=== PATIENT | female | born 1980 | race Caucasian/White ===

== ENCOUNTER 2023-08-25 07:51 | Outpatient (OUT) | payer BC, SELFPAY ==
[2023-08-25 08:24] LABS: Basophils Absolute Auto 0.1 10^3/uL (0.0-0.1); Basophils Percent Auto 0.8 % (0.2-2.0); Eosinophils Absolute Auto 0.1 10^3/uL (0.0-0.7); Eosinophils Percent Auto 1.4 % (0.9-7.0); Hematocrit 43.3 % (36.0-48.0); Immature Granulocytes Abs Auto 0.02 10^3/uL (0.00-0.03); Immature Granulocytes Pct Auto 0.3 % (0.0-0.5); Lymphocytes Absolute Auto 2.3 10^3/uL (1.2-3.8); Lymphocytes Percent Auto 32.8 % (20.5-60.0); Mean Corpuscular HGB Conc 32.3 g/dL (29.9-35.2); Mean Corpuscular Hemoglobin 30.5 pg (26.7-34.0); Mean Corpuscular Volume 94.3 fL (81.0-99.0); Mean Platelet Volume 9.5 fL (9.5-13.5); Monocytes Absolute Auto 0.4 10^3/uL (0.3-0.8); Neutrophils Absolute Auto 4.2 10^3/uL (1.4-6.5); Neutrophils Percent Auto 58.7 % (43.0-75.0); Platelet Count 288 10^3/uL (150-450); Red Blood Count 4.59 10^6/uL (4.20-5.40); Red Cell Distribution Width 12.1 % (11.0-15.0); White Blood Count 7.1 10^3/uL (4.0-11.0)
[2023-08-25 08:31] LABS: Estimated Average Glucose 97 mg/dL
[2023-08-25 09:12] LABS: Alanine Aminotransferase 23 U/L (14-59); Albumin Globulin Ratio 0.9; Albumin Level 3.5 g/dL (3.4-5.0); Alkaline Phosphatase 53 U/L (46-116); Anion Gap 11.6; Aspartate Amino Transferase 16 U/L (15-37); BUN Creatinine Ratio 23.2; Bilirubin Total 1.2 mg/dL (0.2-1.0); Calcium 9.3 mg/dL (8.5-10.1); Carbon Dioxide 29.5 mmol/L (21.0-32.0); Chloride 104 mmol/L (98-107); Chol HDL Ratio 3.3; Cholesterol 181 mg/dL (<=200); Estimated GFR (African America >60 (>=60); Estimated GFR (Non-African Ame >60 (>=60); Free T4 1.09 ng/dL (0.76-1.46); Globulin 3.9 g/dL; Glucose 83 mg/dL (74-106); HDL Cholesterol 55 mg/dL (40-60); LDL Cholesterol Calculated 107.8 mg/dL; Potassium 4.1 mmol/L (3.5-5.1); Sodium 141 mmol/L (136-145); Thyroid Stimulating Hormone 2.278 uIU/mL (0.358-3.740); Total Protein 7.4 g/dL (6.4-8.2); Triglycerides 91 mg/dL (<=150); VLDL CHOLESTEROL 18.2 mg/dL
== END 2023-08-25 07:52 | disposition home or self-care (01) ==
PROVIDERS: PCP Family Medicine; Visit Provider Family Medicine
DX: Z00.00 Encounter for general adult medical examination without abnormal findings (principal); E78.5 Hyperlipidemia, unspecified; R73.09 Other abnormal glucose; Z12.12 Encounter for screening for malignant neoplasm of rectum; D64.9 Anemia, unspecified
CPT/HCPCS: 36415; 80053; 80061; 83036; 83540; 84436; 84439; 84443; 85025

== ENCOUNTER 2024-04-08 07:59 | Outpatient (OUT) | payer BC, SELFPAY ==
--- OUTSIDE RECORDS SUMMARY | 2024-04-08 08:21 | XMS_ITS | CCD ---
Author Organization [facility] [place] Care Team Providers Care Silver Spray Worker Name Role Phone Marta Dorado Primary Care Physician SHAYY LIU Admitting Unavailable ALEXA, SHAYY Attending Unavailable HOY ., DR RAMIREZ Primary Care Unavailable ALEXA, SHAYY Consulting Unavailable WEST, DR JOSE ALFREDO Hopkins Admitting Unavailable WEST, DR JOSE ALFREDO Hopkins Attending Unavailable HOY ., DR RAMIREZ Primary Care Unavailable WEST, DR JOSE ALFREDO Hopkins Consulting Unavailable HOY ., DR RAMIRZE Admitting Unavailable HOY ., DR RAMIREZ Attending Unavailable HOY ., DR RAMIREZ Primary Care Unavailable ALEXA, SHAYY Admitting Unavailable ALEXA, SHAYY Attending Unavailable HOY ., DR RAMIREZ Primary Care Unavailable ALEXASHAYY MO Consulting Unavailable AVE ., MARTA Ford Admitting Unavailable AVE ., MARTA Ford Attending Unavailable HOY ., DR RAMIREZ Primary Care Unavailable ZIEBER, DR SKINNY Ross Consulting Unavailable AVE ., MARTA Ford Consulting Unavailable Ave, Marta Ford Attending Unavailable Ave, Marta Ford Attending Unavailable Ave, Marta Ford Attending Unavailable Ave, Marta Ford Attending Unavailable Ave, Marta Ford Attending Unavailable Ave, Marta Ford Attending Unavailable Ave, Marta Ford Attending Unavailable Ave, Marta Ford Admitting Unavailable Allergies Allergy Classification Reported Allergen(s) Allergy Type Date of Onset Reaction(s) Facility (1 source) No Known Medication Allergies; Translations: [No Known Medication Allergies] Propensity to adverse reactions (disorder) [facility] Repository Medications Current Medications Medication Drug Class(es) Dates Sig (Normalized) Sig (Original) 0.5 ML tirzepatide 25 MG/ML Auto-Injector [Mounjaro] (1 source) Start: 12-07-2023 inject 12.5 mg by subcutaneous injection every week Mounjaro 12.5 mg/0.5 mL subcutaneous solution 12.5 mg, SubCutaneous, qWeek, # 4 EA, Refills(s) 1, Pharmacy: [facility], 163, cm, 12/07/23 9:09:00 EDT, Height/Length Dosing, 76.9, kg, 12/07/23 9:09:00 EDT, Weight Dosing Start Date: 12/07/23 Status: Ordered Adderall (2 sources) Central Nervous System Stimulant Start: 08-11-2019 take 30 mg by mouth once daily Adderall 30 mg, Oral, Daily, Refill(s) 0 Start Date: 08/11/19 Status: Ordered aspirin 81 mg oral tablet (2 sources) Platelet Aggregation Inhibitor, Nonsteroidal Anti-inflammatory Drug Start: 11-09-2022 take 1 tablet by mouth once daily Aspirin Low Dose 81 mg oral enteric coated tablet 81 mg = 1 tab(s), Oral, Daily, Refills(s) 0 Start Date: 11/09/22 Status: Ordered fluconazole 150 mg oral tablet (1 source) Azole Antifungal Start: 11-09-2022 take 1 tablet by mouth once Diflucan 150 mg Tab 150 mg = 1 tab(s), Oral, Once, # 1 tab(s), Refills(s) 0, Pharmacy: [facility]/pharmacy #[id number], 163, cm, 11/09/22 9:34:00 EDT, Height/Length Dosing, 90, kg, 11/09/22 9:34:00 EDT, Weight Dosing Start Date: 11/09/22 Status: Ordered 24 hr guanFACINE 3 mg extended release oral tablet (2 sources) Central alpha-2 Adrenergic Agonist Start: 11-09-2022 take 1 tablet by mouth once daily guanfacine 3 mg oral tablet, extended release 3 mg = 1 tab(s), Oral, Daily, Refills(s) 0 Start Date: 11/09/22 Status: Ordered Mounjaro 2.5 mg/0.5 mL subcutaneous solution (1 source) Start: 11-09-2022 inject 2.5 mg by subcutaneous injection every week Mounjaro 2.5 mg/0.5 mL subcutaneous solution 2.5 mg, SubCutaneous, qWeek, # 4 EA, Refills(s) 2, Pharmacy: [facility]/pharmacy #[id number], 163, cm, 11/09/22 9:34:00 EDT, Height/Length Dosing, 90, kg, 11/09/22 9:34:00 EDT, Weight Dosing Start Date: 11/09/22 Status: Ordered Multi Vitamin+ (2 sources) Start: 08-11-2019 Multi Vitamin+ Refill(s) 0 Start Date: 08/11/19 Status: Ordered ondansetron 4 mg oral tablet (1 source) Serotonin-3 Receptor Antagonist Start: 12-07-2023 take 1 tablet by mouth every eight hours as needed for nausea Zofran 4 mg Tab 4 mg = 1 tab(s), Oral, q8hr, PRN Nausea/Vomiting, # 12 tab(s), Refills(s) 1, Pharmacy: [facility]/pharmacy #[id number], 163, cm, 12/07/23 9:09:00 EDT, Height/Length Dosing, 76.9, kg, 12/07/23 9:09:00 EDT, Weight Dosing Start Date: 12/07/23 Status: Ordered Vitamin D3 10,000 intl units oral capsule (2 sources) Start: 11-09-2022 take 1 capsule by mouth once daily Vitamin D3 10,000 intl units oral capsule 250 mcg = 1 cap(s), Oral, Daily, Refills(s) 0 Start Date: 11/09/22 Status: Ordered Completed/Discontinued Medications Medication Drug Class(es) Dates Sig (Normalized) Sig (Original) levonorgestrel 0.228386 mg/hr intrauterine system (3 sources) Progestin, Progestin-containin g Intrauterine Device Start: 11-09-2022 Mirena 52 mg intrauteral device 52 mg = 1 EA, IntraUteral, Once, X 1 dose(s), # 1 EA, Refills(s) 0 Start Date: 11/09/22 Status: Ordered Problems Active Problems Problem Classification Problem Date Documented Da te Episodic/Chronic Genitourinary symptoms and ill-defined conditions (2 sources) Microscopic hematuria 08-01-2019 Episodic Other nutritional; endocrine; and metabolic disorders (2 sources) Body mass index 30+ - obesity 11-09-2022 Chronic Other nutritional; endocrine; and metabolic disorders (1 source) Overweight in adulthood with body mass index of 25 or more but less than 30 12-07-2023 Episodic Other screening for suspected conditions (not mental disorders or infectious disease) (4 sources) Encounter for screening mammogram for malignant neoplasm of breast; Translations: [ENC SCR MAMMO MALIG NEOPLASM BREAST] Onset: 12-04-2022 Episodic Unclassified (2 sources) Non-smoker 11-09-2022 Unclassified (2 sources) CONTACT W/AND (SUSP) EXPOS COVID-19; Translations: [CONTACT W/AND (SUSP) EXPOS COVID-19] Onset: 04-18-2022 Unclassified (1 source) Cancer cervix screening status 12-07-2023 Unclassified (3 sources) Patient encounter status 04-11-2023 Viral infection (1 source) COVID-19; Translations: [COVID-19] Onset: 04-18-2022 Past or Other Problems Problem Classification Problem Date Documented Da te Episodic/Chronic Unclassified (1 source) CONTACT W/AND (SUSP) EXPOS COVID-19; Translations: [CONTACT W/AND (SUSP) EXPOS COVID-19] Onset: 04-16-2022 Results Test Name Value Interpretation Reference Range Facility PAP 12-13-2023 Cytology report Cyto stain Doc (Cvx/Vag) Note Invalid Interpretation Code [facility] Comment on above: Result Comment: TEST S RESULT FLAG UNITS REF RANGE LAB Clinician Provided Cytology Information Source.............Endocervix No. of containers..01 ThinPrep Vial DIAGNOSIS: 01 NEGATIVE FOR INTRAEPITHELIAL LESION OR MALIGNANCY. Specimen adequacy: 01 Satisfactory for evaluation. No endocervical component is identified. Performed by: 01 Brigid Gama Body Maker Machine Setter (ASCP) . 01 Note: Note 01 The Pap smear is a screening test designed to aid in the detection of premalignant and malignant conditions of the uterine cervix. It is not a diagnostic procedure and should not be used as the sole means of detecting cervical cancer. Both false-positive and false-negative reports do occur. Test Methodology: Note 01 This liquid based ThinPrep(R) pap test was screened with the use of an image guided system. HPV Genotype Reflex Note 01 Criteria not met, HPV Genotype not performed. FLAG LEGEND: L-Low Normal,H-High Normal,LL-Alert Low,HH-Alert High <-Panic Low,>-Panic High,A-Abnormal,AA-Critical Abnormal Performed at: [address] [address] Nessa Graham MD, Performed By: #### 1 [id number] #### [facility] [address] [place] [address] HPV 16+18+31+33+35+39+ 45+51+52+56+58+59+ 66+68 DNA Probe+sig amp Ql (Cvx) Negative Invalid Interpretation Code Negative [facility] Comment on above: Result Comment: This nucleic acid amplification test detects fourteen high-risk HPV types (16,18,31,33,35,39,45,51,52,56,58,59,66,68) without differentiation. Performed at: [address] [id number] MD Gladys Szymanski Performed at: =[address] [id number] MD Gladys Szymanski Performed By: #### 1 [id number] #### [facility] [address] [place] [address] Ambulatory Visit Summaryon 0 12-07-2023 Ambulatory Visit Summary ELENA METZGER :1980 Visit Date:12/07/2023 Ambulatory Visit Instructions Your Diagnosis Well woman exam Breast cancer screening by mammogram Cervical cancer screening Adult BMI 29.0-29.9 kg/sq m BMI 28.0-28.9,adult Tests Performed MA Mamm Screen w/CAD if perf and 3D Selvin -- Results Pending -- Please visit your patient portal for your results or contact your primary care physician. Your Care Team Attending Physician - Marta Kent Primary Care Physician - Marta Kent This Is Your Medications List amphetamine-dextroamp hetamine (Adderall) aspirin (Aspirin Low Dose 81 mg oral enteric coated tablet) cholecalciferol (Vitamin D3 10,000 intl units oral capsule) guanfacine (guanfacine 3 mg oral tablet, extended release) levonorgestrel (Mirena 52 mg intrauteral device) multivitamin (Multi Vitamin+) ondansetron (Zofran 4 mg Tab) tirzepatide (Mounjaro 12.5 mg/0.5 mL subcutaneous solution) Procedures Performed Caesarean section, Colonoscopy, Tonsillectomy, Tubal ligation. Discharge Vitals Heart Rate (Peripheral) 86 Blood Pressure 120/64 Height 163.0 cm Height 64 in Weight 76.9 kg Weight 169.18 lb BMI 28.94 What to do next Scheduled Follow-Up Appointments Sunday 8:20 AM EDT With: Marta Kent Where: [facility] Invalid Interpretation Code [address] [place] [address]- \.br\ You Need to Complete the Following\.br\ PAP [id number] w/ HPV and Genotype rflx, Cervical, Routine collect, 12/07/23, Order for future visit, Nurse collect, Well woman exam [facility] Office/Clini c Noteon 12-07-2023 Family Medicine Office/Clinic Note Chief Complaint well woman check HPI Staff Elena is a 43 year old female presenting for well woman check last pap 2022-normal mammogram november 2022 no risk for std and has never had one in the past. has a mirena History of Present Illness pt presents today for well woman exam Review of Systems PHQ Score Initial Depression Screen Score: 0 SCORE Physical Exam Vitals & Measurements HR: 86(Peripheral) BP: 120/64 SpO2: 98% HT: 64 in HT: 163.0 cm WT: 76.9 kg WT: 169.18 lb BMI: 28.94 General: Well developed, well nourished, in no acute distress Neck: Neck supple. No masses or palpable cervical nodes. Trachea midline. Thyroid without nodules, masses, tenderness, or enlargement Breast: No mass, nodule, discharge, or erythema bilaterally, and no axillary lymphadenopathy Lungs: Normal respiratory effort and clear to auscultation Cardio: Regular rate and rhythm, normal S1 and S2, no murmur, no rub Abdomen: Soft, non-distended, non-tender, normal bowel sounds x4 Gyno: normal external genitalia. Urethra no discharge. Vagina normal without lesions, no vaginal discharge. Cervix normal, without lesions. Uterus normal. No adnexal masses. Pap obtained Neurologic: Grossly normal Skin: [place], moist, no tenting Lymph Nodes: No cervical adenopathy, nodes normal Mental Status: Alert and oriented x3. Normal mood and affect Assessment/Plan 1. Well woman exam (Z01.419: Encounter for gynecological examination (general) (routine) without abnormal findings) pt presents today for well woman exam. BSE discussed. SELVIN breast exam WNL. pap obtained without difficulty. pt is doing well denies needs at this time. RTC 3 months for weight managment Ordered: ondansetron, 4 mg = 1 tab(s), Oral, q8hr, PRN Nausea/Vomiting, # 12 tab(s), Refills(s) 1, Pharmacy: [id number], 163, cm, 12/07/23 9:09:00 EDT, Height/Length Dosing, 76.9, kg, 12/07/23 9:09:00 EDT, Weight Dosing MA Mamm Screen w/CAD if perf and 3D Selvin PAP w/ HPV and Genotype rflx 2. Breast cancer screening by mammogram (Z12.31: Encounter for screening mammogram for malignant neoplasm of breast) mammogram scheduled for next week at [facility] Ordered: ondansetron, 4 mg = 1 tab(s), Oral, q8hr, PRN Nausea/Vomiting, # 12 tab(s), Refills(s) 1, Pharmacy: [id number], 163, cm, 12/07/23 9:09:00 EDT, Height/Length Dosing, 76.9, kg, 12/07/23 9:09:00 EDT, Weight Dosing MA Mamm Screen w/CAD if perf and 3D Selvin PAP w/ HPV and Genotype rflx 3. Cervical cancer screening (Z12.4: Encounter for screening for malignant neoplasm of cervix) pap obtained Ordered: ondansetron, 4 mg = 1 tab(s), Oral, q8hr, PRN Nausea/Vomiting, # 12 tab(s), Refills(s) 1, [id number], 163, cm, 12/07/23 9:09:00 EDT, Height/Length Dosing, 76.9, kg, 12/07/23 9:09:00 EDT, Weight Dosing PAP w/ HPV and Genotype rflx 4. Adult BMI 29.0-29.9 kg/sq m (Z68.29: Body mass index [BMI] 29.0-29.9, adult) pt has been taking mounjaro is at a stand still for weight loss. will increase dose 5. BMI 28.0-28.9,adult (Z68.28: Body mass index [BMI] 28.0-28.9, adult) BMI education compelte Ordered: ondansetron, 4 mg = 1 tab(s), Oral, q8hr, PRN Nausea/Vomiting, # 12 tab(s), Refills(s) 1, [id number], 163, cm, 12/07/23 9:09:00 EDT, Height/Length Dosing, 76.9, kg, 12/07/23 9:09:00 EDT, Weight Dosing PAP w/ HPV and Genotype rflx Orders: tirzepatide, 12.5 mg, SubCutaneous, qWeek, # 4 EA, Refills(s) 1, Pharmacy: [facility], 163, cm, 12/07/23 9:09:00 EDT, Height/Length Dosing, 76.9, kg, 12/07/23 9:09:00 EDT, Weight Dosing tirzepatide, 10 mg, SubCutaneous, qWeek, # 12 EA, Refills(s) 0, Pharmacy: [facility], 163, cm, 09/05/23 16:47:00 EST, Height/Length Dosing, 79.5, kg, 09/05/23 16:47:00 EST, Weight Dosing Follow-up No qualifying data available Problem List/Past Medical History Ongoing Adult BMI 29.0-29.9 kg/sq m Asymptomatic microscopic hematuria BMI 33.0-33.9,adult Breast cancer screening by mammogram Cervical cancer screening Encounter for weight management Non-smoker Well woman exam Historical No qualifying data Procedure/Surgical History Caesarean section, Colonoscopy, Tonsillectomy, Tubal ligation. Medications Adderall, 30 mg, Oral, Daily Aspirin Low Dose 81 mg oral enteric coated tablet, 81 mg= 1 tab(s), Oral, Daily guanfacine 3 mg oral tablet, extended release, 3 mg= 1 tab(s), Oral, Daily Mirena 52 mg intrauteral device, 52 mg= 1 EA, IntraUteral, Once Mounjaro 12.5 mg/0.5 mL subcutaneous solution, 12.5 mg, SubCutaneous, qWeek, 1 refills Multi Vitamin+ Vitamin D3 10,000 intl units oral capsule, 250 mcg= 1 cap(s), Oral, Daily Zofran 4 mg Tab, 4 mg= 1 tab(s), Oral, q8hr, PRN, 1 refills Allergies No Known Allergies Social History Alcohol Current, 1-2 times per month, 08/11/2019 Tobacco Never (less than 100 in lifetime) Tobacco Use:. Never Smokeless Tobacco Use:. Household tobacco (more content not included)... Normal [facility] Comment on above: Result Comment: Elec tronically Signed By: Marta Kent\.br\Date and Time Signed: 12/07/23 09:39 EDT PAP [id number] 12-07-2023 Gynecological Body Site ENDOCERVIX Normal [facility] Comment on above: Performed By: #### 1 [id number] #### [facility] [address] [place] [address] Ambulatory Visit Summaryon 0 09-05-2023 Ambulatory Visit Summary ELENA METZGER :1980 Visit Date:09/05/2023 Ambulatory Visit Instructions Your Diagnosis Encounter for weight management Non-smoker BMI 29.0-29.9,adult Class 1 obesity due to excess calories in adult Your Care Team Attending Physician - Marta Kent Primary Care Physician - Marta Kent This Is Your Medications List amphetamine-dextroamp hetamine (Adderall) aspirin (Aspirin Low Dose 81 mg oral enteric coated tablet) cholecalciferol (Vitamin D3 10,000 intl units oral capsule) guanfacine (guanfacine 3 mg oral tablet, extended release) levonorgestrel (Mirena 52 mg intrauteral device) multivitamin (Multi Vitamin+) tirzepatide (Mounjaro 10 mg/0.5 mL subcutaneous solution) Procedures Performed Caesarean section, Colonoscopy, Tonsillectomy, Tubal ligation. Discharge Vitals Heart Rate (Peripheral) 68 Respiratory Rate 18 Blood Pressure 130/82 Height 163.0 cm Height 64 in Weight 79.5 kg Weight 174.9 lb BMI 29.92 What to do next Scheduled Follow-Up Appointments Sunday 4:40 PM EDT With: Marta Kent Where: [facility] [place] Normal [facility] Family Medicine Office/Clini c Noteon 09-05-2023 Family Medicine Office/Clinic Note HPI Staff Elena is a 43 year old female presenting for 3 month follow up Weight management: started on Mounjaro 07/26/23 , was previously on Ozempic and wasn't happy with results Sleeping well:Yes, 6-8 hours Chest pain:No Tremors:No Headaches:No Heart fluttering:No Blurred Vision:No Beginning weight: 182.16Ibs/82.80kg Previous weight: 180.6Ibs/82.1Kg Today's weight: 174.9Ibs/ 79.5kg Questions/Concerns: no concerns History of Present Illness pt presents today for weight management. was started on mounjaro in June Review of Systems PHQ Score Initial Depression Screen Score: 0 SCORE ROS - Provider Constitutional: no fever, no chills, no sweats, no fatigue Respiratory: no shortness of breath, no cough, no orthopnea, no wheezing. Cardiovascular: no chest pain, no palpitations, no edema. Neurologic: no headache, no dizziness, no numbness, no weakness. Physical Exam Vitals & Measurements HR: 68(Peripheral) RR: 18 BP: 130/82 SpO2: 99% HT: 64 in HT: 163.0 cm WT: 79.5 kg WT: 174.9 lb BMI: 29.92 General: alert, no acute distress ENMT: oral mucosa moist, no pharyngeal erythema or exudate Cardiovascular: regular rate and rhythm, normal peripheral perfusion Respiratory: Lungs CTA, respirations non labored Extremities: no deformity, no trauma Neurological: oriented x 4, LOC appropriate for age, CN II-XII intact, motor strength equal & normal bilaterally, speech normal Assessment/Plan 1. Encounter for weight management (Z76.89: Persons encountering health services in other specified circumstances) pt presents today for weight management. is down 6 pounds. is doing well. will send 3 month refill. all questions answered. RTC 3 months 2. Non-smoker (Z78.9: Other specified health status) continue not smoking Ordered: tirzepatide, 10 mg, SubCutaneous, qWeek, # 12 EA, Refills(s) 0, Pharmacy: [facility], 163, cm, 09/05/23 16:47:00 EST, Height/Length Dosing, 79.5, kg, 09/05/23 16:47:00 EST, Weight Dosing tirzepatide, 10 mg, SubCutaneous, qWeek, # 12 EA, Refills(s) 0, Pharmacy: [facility], 163, cm, 07/04/23 17:29:00 EST, Height/Length Dosing, 82.1, kg, 07/04/23 17:29:00 EST, Weight Dosing 3. BMI 29.0-29.9,adult (Z68.29: Body mass index [BMI] 29.0-29.9, adult) BMI education complete Class 1 obesity due to excess calories in adult (E66.09: Other obesity due to excess calories) see above Ordered: tirzepatide, 10 mg, SubCutaneous, qWeek, # 12 EA, Refills(s) 0, Pharmacy: [facility], 163, cm, 09/05/23 16:47:00 EST, Height/Length Dosing, 79.5, kg, 09/05/23 16:47:00 EST, Weight Dosing tirzepatide, 10 mg, SubCutaneous, qWeek, # 12 EA, Refills(s) 0, Pharmacy: [facility], 163, cm, 07/04/23 17:29:00 EST, Height/Length Dosing, 82.1, kg, 07/04/23 17:29:00 EST, Weight Dosing Orders: semaglutide, 0.25 mg, SubCutaneous, qWeek, 0.25mg-weekly x4 weeks 0.50mg-weekly x4 weeks 1mg-weekly x 4weeks, # 1 EA, Refills(s) 2, Pharmacy: [facility], 163, cm, 04/11/23 17:03:00 EDT, Height/Length Dosing, 82.8, kg, 04/11/23 17:03:00 EDT, We... semaglutide, 1 mg, SubCutaneous, qWeek, 4 EA, Refill(s) 1, start after 0.5 mg completed, [facility], 163, cm, 04/11/23 17:03:00 EDT, Height/Length Dosing, 82.8, kg, 04/11/23 17:03:00 EDT, Weight Dosing tirzepatide, 2.5 mg, SubCutaneous, qWeek, # 4 EA, Refills(s) 2, Pharmacy: [facility] #[id number], 163, cm, 11/09/22 9:34:00 EDT, Height/Length Dosing, 90, kg, 11/09/22 9:34:00 EDT, Weight Dosing Follow-up No qualifying data available Problem List/Past Medical History Ongoing Asymptomatic microscopic hematuria BMI 33.0-33.9,adult Encounter for weight management Non-smoker Historical No qualifying data Procedure/Surgical History Caesarean section, Colonoscopy, Tonsillectomy, Tubal ligation. Medications Adderall, 30 mg, Oral, Daily Aspirin Low Dose 81 mg oral enteric coated tablet, 81 mg= 1 tab(s), Oral, Daily guanfacine 3 mg oral tablet, extended release, 3 mg= 1 tab(s), Oral, Daily Mirena 52 mg intrauteral device, 52 mg= 1 EA, IntraUteral, Once Mounjaro 10 mg/0.5 mL subcutaneous solution, 10 mg, SubCutaneous, qWeek Multi Vitamin+ Vitamin D3 10,000 intl units oral capsule, 250 mcg= 1 cap(s), Oral, Daily Allergies No Known Allergies Social History Alcohol Current, 1-2 times per month, 08/11/2019 Tobacco Never (less than 100 in lifetime) Tobacco Use:. Never Smokeless Tobacco Use:. Household tobacco concerns: No., 09/05/2023 Family History Family history is negative Immunizations Vaccine Date Status SARS-CoV-2 (COVID-19) mRNA-1273 vaccine 09/30/2020 Recorded SARS-CoV-2 (COVID-19) mRNA-1273 vaccine 09/02/2020 Recorded influenza, unspecified formulation 06/04/2020 Recorded influenza, unspecified formulation 06/05/2017 Recorded Normal [facility] Comment on above: Result Comment: Elec tronically Signed By: Marta Kent\.br\Date and Time Signed: 09/05/23 17:07 EST Family Medicine Office/Clini c Noteon 07-26-2023 Family Medicine Office/Clinic Note HPI Staff Elena is a 43 year old female presenting for 3 month follow up Weight management: Started semaglutide on 04/11/23 Sleeping well:Yes, 6-8 hours Chest pain:No Tremors:No Headaches:No Heart fluttering:No Blurred Vision:No Beginning weight: 182.16Ibs/82.80kg Previous weight: Today's weight: 82.1kg/180.6lbs Questions/Concerns: doesn't feel the shot is doing much for her in terms of weight loss, took it a year ago and did great with it, not happy with it can't do adipex due to she takes adderall would mounjaro be an option History of Present Illness pt presents today for weight management. down 2 pounds. pt is not getting the results she expected Review of Systems ROS - Provider Constitutional: no fever, no chills, no sweats, no fatigue Respiratory: no shortness of breath, no cough, no orthopnea, no wheezing. Cardiovascular: no chest pain, no palpitations, no edema. Neurologic: no headache, no dizziness, no numbness, no weakness. Physical Exam Vitals & Measurements T: 37.0 ?C(Temporal Artery) HR: 78(Peripheral) RR: 14 BP: 120/78 SpO2: 100% HT: 64 in HT: 163 cm WT: 82.1 kg WT: 180.62 lb BMI: 30.9 General: alert, no acute distress ENMT: oral mucosa moist, no pharyngeal erythema or exudate Cardiovascular: regular rate and rhythm, normal peripheral perfusion Respiratory: Lungs CTA, respirations non labored Extremities: no deformity, no trauma Neurological: oriented x 4, LOC appropriate for age, CN II-XII intact, motor strength equal & normal bilaterally, speech normal Assessment/Plan 1. Encounter for weight management (Z76.89: Persons encountering health services in other specified circumstances) pt is not getting results like she did the last time she was on ozempic. medication changed to mounjaro. pt to return in 3 months. all questions answered. 2. BMI 30.0-30.9,adult (Z68.30: Body mass index [BMI] 30.0-30.9, adult) bmi education complete 3. Class 1 obesity due to excess calories in adult (E66.09: Other obesity due to excess calories) see above 4. Nonsmoker (Z78.9: Other specified health status) continue not smoking Follow-up No qualifying data available Problem List/Past Medical History Ongoing Asymptomatic microscopic hematuria BMI 33.0-33.9,adult Encounter for weight management Non-smoker Historical No qualifying data Procedure/Surgical History Caesarean section, Colonoscopy, Tonsillectomy, Tubal ligation. Medications Adderall, 30 mg, Oral, Daily Aspirin Low Dose 81 mg oral enteric coated tablet, 81 mg= 1 tab(s), Oral, Daily guanfacine 3 mg oral tablet, extended release, 3 mg= 1 tab(s), Oral, Daily Mirena 52 mg intrauteral device, 52 mg= 1 EA, IntraUteral, Once Mirena 52 mg intrauteral device, 52 mg= 1 EA, IntraUteral, Once Mounjaro 10 mg/0.5 mL subcutaneous solution, 10 mg, SubCutaneous, qWeek Mounjaro 2.5 mg/0.5 mL subcutaneous solution, 2.5 mg, SubCutaneous, qWeek, 2 refills, Not taking Multi Vitamin+, Not taking Ozempic 2 mg/1.5 mL (1 mg dose) subcutaneous solution, 1 mg, SubCutaneous, qWeek, 1 refills Ozempic 2 mg/3 mL (0.25 mg or 0.5 mg dose) subcutaneous solution, 0.25 mg, SubCutaneous, qWeek, 2 refills Vitamin D3 10,000 intl units oral capsule, 250 mcg= 1 cap(s), Oral, Daily Allergies No Known Allergies Social History Alcohol Current, 1-2 times per month, 08/11/2019 Tobacco Never (less than 100 in lifetime) Tobacco Use:. Never Smokeless Tobacco Use:. Household tobacco concerns: No., 07/04/2023 Family History Family history is negative Immunizations Vaccine Date Status SARS-CoV-2 (COVID-19) mRNA-1273 vaccine 09/30/2020 Recorded SARS-CoV-2 (COVID-19) mRNA-1273 vaccine 09/02/2020 Recorded influenza, unspecified formulation 06/04/2020 Recorded influenza, unspecified formulation 06/05/2017 Recorded Normal [facility] Comment on above: Result Comment: Elec tronically Signed By: Ave GAUTHIER, Marta Ford\.br\Date and Time Signed: 07/26/23 14:11 EST Family Medicine Office/Clini c Noteon 07-24-2023 Family Medicine Office/Clinic Note HPI Staff Elena is a 43 year old female presenting for 3 month follow up Weight management: Started semaglutide on 04/11/23 Sleeping well:Yes, 6-8 hours Chest pain:No Tremors:No Headaches:No Heart fluttering:No Blurred Vision:No Beginning weight: 182.16Ibs/82.80kg Previous weight: Today's weight: 82.1kg/180.6lbs Questions/Concerns: doesn't feel the shot is doing much for her in terms of weight loss, took it a year ago and did great with it, not happy with it can't do adipex due to she takes adderall would mounjaro be an option History of Present Illness pt presents today for weight management. was started on ozempic 3 months ago Review of Systems ROS - Provider Constitutional: no fever, no chills, no sweats, no fatigue Respiratory: no shortness of breath, no cough, no orthopnea, no wheezing. Cardiovascular: no chest pain, no palpitations, no edema. Neurologic: no headache, no dizziness, no numbness, no weakness. Physical Exam Vitals & Measurements T: 37.0 ?C(Temporal Artery) HR: 78(Peripheral) RR: 14 BP: 120/78 SpO2: 100% HT: 64 in HT: 163 cm WT: 82.1 kg WT: 180.62 lb BMI: 30.9 General: alert, no acute distress ENMT: oral mucosa moist, no pharyngeal erythema or exudate Cardiovascular: regular rate and rhythm, normal peripheral perfusion Respiratory: Lungs CTA, respirations non labored Extremities: no deformity, no trauma Neurological: oriented x 4, LOC appropriate for age, CN II-XII intact, motor strength equal & normal bilaterally, speech normal Assessment/Plan 1. Encounter for weight management (Z76.89: Persons encountering health services in other specified circumstances) pt is not doing as well with weight loss on the ozempic this time. would like to try mounjaro. will send to [facility]. all questions answered. RTC 3 months 2. BMI 30.0-30.9,adult (Z68.30: Body mass index [BMI] 30.0-30.9, adult) bmi education complete 3. Class 1 obesity due to excess calories in adult (E66.09: Other obesity due to excess calories) see above 4. Nonsmoker (Z78.9: Other specified health status) continue not smoking Follow-up No qualifying data available Problem List/Past Medical History Ongoing Asymptomatic microscopic hematuria BMI 33.0-33.9,adult Encounter for weight management Non-smoker Historical No qualifying data Procedure/Surgical History Caesarean section, Colonoscopy, Tonsillectomy, Tubal ligation. Medications Adderall, 30 mg, Oral, Daily Aspirin Low Dose 81 mg oral enteric coated tablet, 81 mg= 1 tab(s), Oral, Daily guanfacine 3 mg oral tablet, extended release, 3 mg= 1 tab(s), Oral, Daily Mirena 52 mg intrauteral device, 52 mg= 1 EA, IntraUteral, Once Mirena 52 mg intrauteral device, 52 mg= 1 EA, IntraUteral, Once Mounjaro 10 mg/0.5 mL subcutaneous solution, 10 mg, SubCutaneous, qWeek Mounjaro 2.5 mg/0.5 mL subcutaneous solution, 2.5 mg, SubCutaneous, qWeek, 2 refills, Not taking Multi Vitamin+, Not taking Ozempic 2 mg/1.5 mL (1 mg dose) subcutaneous solution, 1 mg, SubCutaneous, qWeek, 1 refills Ozempic 2 mg/3 mL (0.25 mg or 0.5 mg dose) subcutaneous solution, 0.25 mg, SubCutaneous, qWeek, 2 refills Vitamin D3 10,000 intl units oral capsule, 250 mcg= 1 cap(s), Oral, Daily Allergies No Known Allergies Social History Alcohol Current, 1-2 times per month, 08/11/2019 Tobacco Never (less than 100 in lifetime) Tobacco Use:. Never Smokeless Tobacco Use:. Household tobacco concerns: No., 07/04/2023 Family History Family history is negative Immunizations Vaccine Date Status SARS-CoV-2 (COVID-19) mRNA-1273 vaccine 09/30/2020 Recorded SARS-CoV-2 (COVID-19) mRNA-1273 vaccine 09/02/2020 Recorded influenza, unspecified formulation 06/04/2020 Recorded influenza, unspecified formulation 06/05/2017 Recorded Normal [facility] Comment on above: Result Comment: Elec tronically Signed By: Marta Kent\.br\Date and Time Signed: 07/24/23 15:52 EST Retail - Clinical Noteon Retail - Clinical Note [id number]. [id number] Normal [facility] Ambulatory Visit Summaryon 1 09-03-2022 Ambulatory Visit Summary ELENA METZGER :1980 Visit Date:07/04/2023 Ambulatory Visit Instructions Your Diagnosis BMI 30.0-30.9,adult Class 1 obesity due to excess calories in adult Nonsmoker Your Care Team Attending Physician - Marta Kent Primary Care Physician - Marta Kent This Is Your Medications List amphetamine-dextroamp hetamine (Adderall) aspirin (Aspirin Low Dose 81 mg oral enteric coated tablet) cholecalciferol (Vitamin D3 10,000 intl units oral capsule) guanfacine (guanfacine 3 mg oral tablet, extended release) levonorgestrel (Mirena 52 mg intrauteral device) levonorgestrel (Mirena 52 mg intrauteral device) multivitamin (Multi Vitamin+) semaglutide (Ozempic 2 mg/1.5 mL (1 mg dose) subcutaneous solution) semaglutide (Ozempic 2 mg/3 mL (0.25 mg or 0.5 mg dose) subcutaneous solution) tirzepatide (Mounjaro 10 mg/0.5 mL subcutaneous solution) tirzepatide (Mounjaro 2.5 mg/0.5 mL subcutaneous solution) Procedures Performed Caesarean section, Colonoscopy, Tonsillectomy, Tubal ligation. Discharge Vitals Temperature (Temporal Artery) 37.0 ?C Heart Rate (Peripheral) 78 Respiratory Rate 14 Blood Pressure 120/78 Height 163 cm Height 64 in Weight 82.1 kg Weight 180.62 lb BMI 30.9 What to do next Scheduled Follow-Up Appointments Sunday 4:40 PM EST With: Marta Kent Where: [facility] Ambulatory Visit Summaryon 0 04-11-2023 Ambulatory Visit Summary ELENA METZGER :1980 Visit Date:04/11/2023 Ambulatory Visit Instructions Your Diagnosis BMI 31.0-31.9,adult Your Care Team Attending Physician - Marta Kent Primary Care Physician - Marta Kent This Is Your Medications List amphetamine-dextroamp hetamine (Adderall) aspirin (Aspirin Low Dose 81 mg oral enteric coated tablet) cholecalciferol (Vitamin D3 10,000 intl units oral capsule) fluconazole (Diflucan 150 mg Tab) guanfacine (guanfacine 3 mg oral tablet, extended release) levonorgestrel (Mirena 52 mg intrauteral device) levonorgestrel (Mirena 52 mg intrauteral device) multivitamin (Multi Vitamin+) tirzepatide (Mounjaro 2.5 mg/0.5 mL subcutaneous solution) Procedures Performed Caesarean section, Colonoscopy, Tonsillectomy, Tubal ligation. Discharge Vitals Heart Rate (Peripheral) 78 Respiratory Rate 18 Blood Pressure 128/82 Height 163 cm Height 64 in Weight 82.80 kg Weight 182.16 lb BMI 31.16 What to do next Scheduled Follow-Up Appointments Sunday 4:40 PM EDT With: Marta Kent Where: [facility] Family Medicine Office/Clini c Noteon 04-11-2023 Family Medicine Office/Clinic Note HPI Staff Elena is a 43 year old female presenting for weight management Weight management Today's Weight: Sleeping well:Yes, 6-8 hours Chest pain:No Tremors:No Headaches:No Heart fluttering:No Blurred Vision:No Questions Concerns: pt has taken ozempic for a few months last year and had to stop due to insurance not covering it. Pt would like to try ozempic again History of Present Illness pt presents today to discuss ozempic rx Review of Systems PHQ Score Initial Depression Screen Score: 0 ROS - Provider Constitutional: no fever, no chills, no sweats, no fatigue Respiratory: no shortness of breath, no cough, no orthopnea, no wheezing. Cardiovascular: no chest pain, no palpitations, no edema. Neurologic: no headache, no dizziness, no numbness, no weakness. Physical Exam Vitals & Measurements HR: 78(Peripheral) RR: 18 BP: 128/82 SpO2: 96% HT: 64 in HT: 163 cm WT: 82.80 kg WT: 182.16 lb BMI: 31.16 General: alert, no acute distress ENMT: oral mucosa moist, no pharyngeal erythema or exudate Cardiovascular: regular rate and rhythm, normal peripheral perfusion Respiratory: Lungs CTA, respirations non labored Extremities: no deformity, no trauma Neurological: oriented x 4, LOC appropriate for age, CN II-XII intact, motor strength equal & normal bilaterally, speech normal Assessment/Plan 1. Abnormal weight gain (R63.5: Abnormal weight gain) pt would like to discuss ozempic. she took it last year and did well on it. but then insurance wouldn't cover it. she has a new insurance. will send rx to [facility]. pt will notify provider if it is not covered. all questions answered. RTC 3 months 2. Encounter for weight management (Z76.89: Persons encountering health services in other specified circumstances) see above 3. Insulin resistance (E88.81: Metabolic syndrome) see above 4. BMI 31.0-31.9,adult (Z68.31: Body mass index [BMI] 31.0-31.9, adult) BMI education complete Ordered: semaglutide, 0.25 mg, SubCutaneous, qWeek, 0.25mg-weekly x4 weeks 0.50mg-weekly x4 weeks 1mg-weekly x 4weeks, # 1 EA, Refills(s) 2, Pharmacy: [facility], 163, cm, 04/11/23 17:03:00 EDT, Height/Length Dosing, 82.8, kg, 04/11/23 17:03:00 EDT, We... Follow-up No qualifying data available Problem List/Past Medical History Ongoing Asymptomatic microscopic hematuria BMI 33.0-33.9,adult Encounter for weight management Non-smoker Historical No qualifying data Procedure/Surgical History Caesarean section, Colonoscopy, Tonsillectomy, Tubal ligation. Medications Adderall, 30 mg, Oral, Daily Aspirin Low Dose 81 mg oral enteric coated tablet, 81 mg= 1 tab(s), Oral, Daily Diflucan 150 mg Tab, 150 mg= 1 tab(s), Oral, Once guanfacine 3 mg oral tablet, extended release, 3 mg= 1 tab(s), Oral, Daily Mirena 52 mg intrauteral device, 52 mg= 1 EA, IntraUteral, Once Mirena 52 mg intrauteral device, 52 mg= 1 EA, IntraUteral, Once Mounjaro 2.5 mg/0.5 mL subcutaneous solution, 2.5 mg, SubCutaneous, qWeek, 2 refills Multi Vitamin+ Ozempic 2 mg/3 mL (0.25 mg or 0.5 mg dose) subcutaneous solution, 0.25 mg, SubCutaneous, qWeek, 2 refills Vitamin D3 10,000 intl units oral capsule, 250 mcg= 1 cap(s), Oral, Daily Allergies No Known Allergies Social History Alcohol Current, 1-2 times per month, 08/11/2019 Tobacco Never (less than 100 in lifetime) Tobacco Use:. Never Smokeless Tobacco Use:. Household tobacco concerns: No., 04/11/2023 Family History Family history is negative Immunizations Vaccine Date Status SARS-CoV-2 (COVID-19) mRNA-1273 vaccine 09/30/2020 Recorded SARS-CoV-2 (COVID-19) mRNA-1273 vaccine 09/02/2020 Recorded influenza, unspecified formulation 06/04/2020 Recorded influenza, unspecified formulation 06/05/2017 Recorded Normal [facility] Comment on above: Result Comment: Elec tronically Signed By: Ave GAUTHIER, Marta Ford\.br\Date and Time Signed: 04/11/23 18:07 EDT MG MAMM SCREEN 3D SELVIN CADon 12-04-2022 MG MAMM SCREEN 3D SELVIN CAD Patient: ELENA METZGER Exam Date: 12/04/2022 : 1980 Gender:F Ordering : MARTA DORADO . Admission #: [id number] Family : Order #: [id number] CLICK HERE TO VIEW EXAM RADIOLOGY REPORT PROCEDURE: MAMMOGRAM SCREENING 3D BILATERAL CAD COMPARISON: MG MAMM SCREEN 3D SELVIN CAD, 09/28/2021. MG MAMM LT DIAG W CAD, 08/19/2020. MG MAMM SCREEN SELVIN W CAD, 10/27/2016. INDICATIONS: Screening mammography Calculator Name NCI Breast Cancer Risk Assessment Tool 5 Year Breast Cancer Risk 0.50% Lifetime Breast Cancer Risk 6.50% Personal Breast Cancer No Personal Ovarian Cancer No Treatments None Family Cancers None LOCATION: [facility] BREAST COMPOSITION: Heterogeneously dense,which may obscure small masses. FINDINGS: DIAGNOSTIC CATEGORY 1--NEGATIVE. RIGHT BREAST: No significant suspicious finding. No significant change has occurred. LEFT BREAST: No significant suspicious finding. No significant change has occurred. RECOMMENDATIONS: ROUTINE MAMMOGRAM AND CLINICAL EVALUATION IN 12 MONTHS. PLEASE NOTE: A NORMAL MAMMOGRAM DOES NOT EXCLUDE THE POSSIBILITY OF BREAST CANCER. A CLINICALLY SUSPICIOUS PALPABLE LUMP SHOULD BE BIOPSIED. Dictated by: Skinny Asher M.D. on 12/04/2022 at 08:34 Approved by: Skinny Asher M.D. on 12/04/2022 at 08:46 Normal [facility] Covid-19 PCR (CVDTB)on 03-28 SARS-CoV-2 (COVID-19) RNA AISHWARYA+probe Ql (Unsp spec) Detected Critically abnormal NOT DETECTED [facility] Comment on above: Result Comment: This test is not yet approved or cleared by the [place] FDA. When there are no FDA-approved or cleared tests available, and other criteria are met, FDA can make tests available under an emergency access mechanism called an Emergency Use Authorization (EUA). The EUA for this test is supported by the [place] Counselor of Health and Human Service's declaration that circumstances exist to justify the emergency use of in vitro diagnostics for the detection and/or diagnosis of the virus that causes COVID-19. This EUA will remain in effect for the duration of the COVID-19 declaration justifying emergency of IVDs, unless it is terminated or revoked by the FDA (after which the test may no longer be used). Performed By: #### C VDTBH #### [facility] [address] [place], [place] [id number] Dr. Ashtyn Hawkins Covid-19 PCR ([facility])on 03-27 SARS-CoV-2 (COVID-19) RNA AISHWARYA+probe Ql (Unsp spec) Detected Critically abnormal NOT DETECTED [facility] Comment on above: Result Comment: This test is not yet approved or cleared by the [place] FDA. When there are no FDA-approved or cleared tests available, and other criteria are met, FDA can make tests available under an emergency access mechanism called an Emergency Use Authorization (EUA). The EUA for this test is supported by the [place] of Health and Human Service's declaration that circumstances exist to justify the emergency use of in vitro diagnostics for the detection and/or diagnosis of the virus that causes COVID-19. This EUA will remain in effect for the duration of the COVID-19 declaration justifying emergency of IVDs, unless it is terminated or revoked by the FDA (after which the test may no longer be used). Performed By: #### C VDTBH #### [facility] [address] [place], [place] [id number] Dr. Ashtyn Hawkins Encounters Encounter Date Encounter Type Care Provider Facility Start: 03-10-2024 End: 03-10-[address] Facility:[facility] Nessa navarro Start: 12-07-2023 End: 12-07-2023 Lab Drop off [address] [facility] Start: 12-07-2023 End: 12-07-[address] Facility[facility] Start: 09-05-2023 End: 09-05-[address] Facility:[facility] Nessa navarro Start: 07-04-2023 End: 07-04-[address] Facility:[facility] Nessa navarro Start: 04-11-2023 End: 04-11-[address] Facility:[facility] Nessa navarro Start: 12-04-2022 End: 12-05-[address] Facility: Start: 11-09-2022 End: 11-09-2022 Lab Drop off [address] L [address] [facility] Start: 08-17-[address] JOSE ALFREDO Alcaraz y:[facility] Start: 04-16-2022 End: 04-16-2022 ambulatory SHAYY LIU Facility:[facility] Start: 04-11-2022 End: 04-11-2022 ambulatory SHAYY LIU Facility:[facility] Start: 04-02-[address] ASHLEY HSU . Facili ty:[facility] Procedures Date Procedure Procedure Detail Performing Clinician section Marta Ave Colonoscopy Marta [address] Ligation of fallopian tube J lory Ave Tonsillectomy Marta Ave Plan of Treatment Date Care Activity Detail Author Start: 12-08-2024 ambulatory Ambulatory Facility:[facility] Immunizations Immunization Date Immunization Notes Care Provider Neville guevara 09-30-2020 SARS-CoV-2 (COVID-19 ) mRNA-[address] [facility] 09-02-2020 SARS-CoV-2 (COVID-19 ) mRNA-[address] [facility] 06-04-2020 influenza, unspecifi ed formulation Marta [address] [facility] 06-05-2017 influenza, unspecifi ed formulation Marta Ave [facility] Payers Date Payer Category Payer Unknown [id number] 1980 Unknown [id number] 2.16.84 [id number] 1980 Unknown [id number] 2.16.84 [id number] 1980 Unknown [id number] 2.16.84 [id number] 1980 Unknown [id number] 2.16.84 [id number] 1980 Unknown [id number] 2.16.84 [id number] 1980 Unknown [id number] 2.16.8 [id number] 1980 Unknown [id number] 2.16.8 [id number] 1980 Unknown [id number] 2.16.8 [id number] 1980 Unknown [id number] 2.16.8 [id number] 1980 Unknown [id number] 2.16.8 [id number] 1980 Unknown [id number] 2.16.8 [id number] 1980 Unknown [id number] 2.16.8 [id number] 1961 Self-pay [id number] 1961 Unknown [id number] 1961 Unknown 84 Social History Date Type Detail Facility Start: 11-09-2022 End: 12-07-2023 Tobacco smoking status Never smoked tobacco (finding) [facility] Tobacco smoking status Never [facility] Sex Assigned At Female [facility] Evaluation + Plan note 11-09-2022 Note Date & Type Note Facility 11-09-2022 Evaluation + [id number] 11/09/22 [facility] Evaluation + Plan note Note Date & Type Note Facility Evaluation + Plan note Future Appointments Appointment Date:03/10/2024 08:20:00 AM Scheduled Provider:Marta Kent Location:[facility] Appointment Type:FM Open Appointment Date:12/08/2024 08:20:00 AM Scheduled Provider:Marta Kent Location:[facility] Appointment Type: Open Diagnostic Tests PendingPAP w/ HPV and Genotype rflx 12/07/23 [facility] Hospital course Narrative Note Date & Type Note Facility Hospital course Narrative No data available for this section [facility] Hospital Discharge instructions Note Date & Type Note Facility Hospital Discharge instructions No data available for this section [facility] Progress note Note Date & Type Note Facility Progress note No data available for this section [facility] Summary Purpose Family History No Family History Records Found No data available for this section No Family History Records Found Advance Directives No Advanced Directives Records FoundNo Advanced Directives Records Found Additional Source Comments Patient Care team informatio n (unrecognized section and content) Personnel Name: AveMarta Ibarra Address: Address: [address] [place] [address]- Personnel Name: Marta Kent Address: Address: [address] [place] [address]- INFORMATION SOURCE (unrecogn ized section and content) DATE CREATED AUTHOR 12/12/2022 [facility] DATE CREATED AUTHOR AUTHOR'S ORGANIZ ATION 03/13/2024 [facility] FOR RECORDS PERTAINING TO PATIENTS WHO ARE OR HAVE BEEN ENROLLED IN A CHEMICAL DEPENDENCY/SUBSTANCEABUSE PROGRAM, SOME INFORMATION MAY BE OMITTED. This clinical summary was aggregated from multiple sources. Caution should be exercised in using it in the provision of clinical care. This summary normalizes information from multiple sources, and as a consequence, information in this document may materially change the coding, format and clinical context of patient data. In addition, data may be omitted in some cases. CLINICAL DECISIONS SHOULD BE BASED ON THE PRIMARY CLINICAL RECORDS. [facility] [employer] [facility]. provides no warranty or guarantee of the accuracy or completeness of information in this document.
--- NOTE | 2024-04-08 08:45 | MM_ITS ---
Patient Name: AROLDO METZGER MR#: [id number] : 1980 Exam Date: 04/08/2024 Ordering Doctor: LAUREN DORADO . RADIOLOGY REPORT PROCEDURE: MM TOMOSYNTHESIS SCREENING BI COMPARISON: MG MAMM SCREEN 3D SOHAIL CAD, 09/28/2021. MG MAMM SCREEN 3D SOHAIL CAD, 12/04/2022. INDICATIONS: Screening Calculator Name NCI Breast Cancer Risk Assessment Tool 5 Year Breast Cancer Risk 0.60% Lifetime Breast Cancer Risk 6.30% Personal Breast Cancer No Personal Ovarian Cancer No Treatments None Family Cancers None LOCATION: [facility] BREAST COMPOSITION: The breasts are heterogeneously dense,which may obscure small masses. FINDINGS: DIAGNOSTIC CATEGORY 1--NEGATIVE. NO CHANGE FROM COMPARISON ASSESSMENT. RIGHT BREAST: No significant suspicious finding. LEFT BREAST: No significant suspicious finding. RECOMMENDATIONS: ROUTINE MAMMOGRAM AND CLINICAL EVALUATION IN 12 MONTHS. PLEASE NOTE: A NORMAL MAMMOGRAM DOES NOT EXCLUDE THE POSSIBILITY OF BREAST CANCER. A CLINICALLY SUSPICIOUS PALPABLE LUMP SHOULD BE BIOPSIED. Dictated by: Ross Boles MD on 04/08/2024 at 11:43 Approved by: Ross Boles MD on 04/08/2024 at 11:44
== END 2024-04-08 08:00 | disposition home or self-care (01) ==
LOC: MAMMO 07:59
PROVIDERS: PCP Family Medicine; Visit Provider Nurse Practitioner
DX: Z12.31 Encounter for screening mammogram for malignant neoplasm of breast (principal)
CPT/HCPCS: 77063; 77067

== ENCOUNTER 2025-06-15 07:32 | Outpatient (OUT) | payer BC, SELFPAY ==
--- NOTE | 2025-06-15 07:34 | MM_ITS ---
Patient Name: AROLDO METZGER MR#: [id number] : 1980 Exam Date: 06/15/2025 Ordering Doctor: LAUREN DORADO . RADIOLOGY REPORT PROCEDURE: MM TOMOSYNTHESIS SCREENING BI COMPARISON: MM TOMOSYNTHESIS SCREENING BI, 04/08/2024. MG MAMM SCREEN 3D SOHAIL CAD, 12/04/2022. MG MAMM SCREEN 3D SOHAIL CAD, 09/28/2021. MG MAMM SCREEN SOHAIL W CAD, 10/27/2016. INDICATIONS: Screening Calculator Name NCI Breast Cancer Risk Assessment Tool 5 Year Breast Cancer Risk 0.60% Lifetime Breast Cancer Risk 6.20% Personal Breast Cancer No Personal Ovarian Cancer No Treatments None Family Cancers None LOCATION: [facility] BREAST COMPOSITION: The breasts are heterogeneously dense, which may obscure small masses. FINDINGS: RIGHT BREAST: No significant suspicious finding. LEFT BREAST: No significant suspicious finding. DIAGNOSTIC CATEGORY 1--NEGATIVE. NO CHANGE FROM COMPARISON ASSESSMENT. RECOMMENDATIONS: ROUTINE MAMMOGRAM AND CLINICAL EVALUATION IN 12 MONTHS. Dictated by: Philip Noyola MD on 06/15/2025 at 10:56 Approved by: Philip Noyola MD on 06/15/2025 at 11:00
--- OUTSIDE RECORDS SUMMARY | 2025-06-15 07:34 | XMS_ITS | CCD ---
Author Organization [facility] Care Team Providers Care Solvent Mixer Name Role Phone Marta Dorado Primary Care Physician SHAYY LIU Admitting Unavailable ALEXA, SHAYY Attending Unavailable HOY ., DR RAMIREZ Primary Care Unavailable ALEXA, SHAYY Consulting Unavailable WEST, DR JOSE ALFREDO Hopkins Admitting Unavailable WEST, DR JOSE ALFREDO Hopkins Attending Unavailable HOY ., DR RAMIREZ Primary Care Unavailable WEST, DR JOSE ALFREDO Hopkins Consulting Unavailable HOY ., DR RAMIREZ Admitting Unavailable HOY ., DR RAMIREZ Attending Unavailable HOY ., DR RAMIREZ Primary Care Unavailable ALEXA, SHAYY Admitting Unavailable ALEXA, SHAYY Attending Unavailable HOY ., DR RAMIREZ Primary Care Unavailable ALEXA, SHAYY Consulting Unavailable AVE ., MARTA Ford Admitting Unavailable AVE ., MARTA Ford Attending Unavailable HOY ., DR RAMIREZ Primary Care Unavailable ZIEBER, DR SKINNY Ross Consulting Unavailable AVE ., MARTA Ford Consulting Unavailable Ave, AEROPLANE PILOTAlfredo Ford Attending Unavailable Ave, AEROPLANE PILOTAlfredo Ford Admitting Unavailable Ave, AEROPLANE PILOT Mrata Ford Attending Unavailable Ave, AEROPLANE PILOT Marta Ford Attending Unavailable Ave, AEROPLANE PILOT Marta L Attending Unavailable Allergies Allergy Classification Reported Allergen(s) Allergy Type Date of Onset Reaction(s) Facility (1 source) No Known Medication Allergies; Translations: [No Known Medication Allergies] Propensity to adverse reactions (disorder) [facility] Repository Medications Current Medications Medication Drug Class(es) Dates Sig (Normalized) Sig (Original) 0.5 ML tirzepatide 25 MG/ML Auto-Injector [Mounjaro] (1 source) Start: 12-07-2023 inject 12.5 mg by subcutaneous injection every week Mounjaro 12.5 mg/0.5 mL subcutaneous solution 12.5 mg, SubCutaneous, qWeek, # 4 EA, Refills(s) 1, Pharmacy: [facility], 163, cm, 12/07/23 9:09:00 EDT, [...] Once, # 1 tab(s), Refills(s) 0, Pharmacy: [facility]/pharmacy #[id number], 163, cm, 11/09/22 9:34:00 EDT, Height/Length [...] qWeek, # 4 EA, Refills(s) 2, Pharmacy: [facility]/pharmacy #[id number], 163, cm, 11/09/22 9:34:00 EDT, Height/Length [...] 12 tab(s), Refills(s) 1, Pharmacy: [facility]/pharmacy #[id number], 163, cm, 12/07/23 9:09:00 EDT, Height/Length [...] Class(es) Dates Sig (Normalized) Sig (Original) levonorgestrel 0.394598 mg/hr intrauterine system (3 sources) Progestin, Progestin-containin g Intrauterine Device Start: 11-09-2022 Mirena 52 mg intrauteral device 52 mg = 1 EA, IntraUteral, Once, X 1 dose(s), # 1 EA, Refills(s) 0 Start Date: 11/09/22 Status: Ordered Problems Active Problems Problem Classification Problem Date Documented Da te Episodic/Chronic Genitourinary symptoms and ill-defined conditions (3 sources) Microscopic hematuria 08-01-2019 Episodic Other nutritional; endocrine; and metabolic disorders (3 sources) Body mass index 30+ - obesity 11-09-2022 Chronic Other nutritional; endocrine; and metabolic disorders (2 sources) Overweight in adulthood with body mass index of 25 or more but less than 30 12-07-2023 Episodic Other screening for suspected conditions (not mental disorders or infectious disease) (4 sources) Encounter for screening mammogram for malignant neoplasm of breast; Translations: [ENC SCR MAMMO MALIG NEOPLASM BREAST] Onset: 12-04-2022 Episodic Unclassified (3 sources) Non-smoker 11-09-2022 Unclassified (2 sources) CONTACT W/AND (SUSP) EXPOS COVID-19; Translations: [CONTACT W/AND (SUSP) EXPOS COVID-19] Onset: 04-18-2022 Unclassified (2 sources) Cancer cervix screening status 12-07-2023 Unclassified (6 sources) Patient encounter status 04-11-2023 Viral infection (1 source) COVID-19; Translations: [COVID-19] Onset: 04-18-2022 Past or Other Problems Problem Classification Problem Date Documented Da te Episodic/Chronic Unclassified (1 source) CONTACT W/AND (SUSP) EXPOS COVID-19; Translations: [CONTACT W/AND (SUSP) EXPOS COVID-19] Onset: 04-16-2022 Results Test Name Value Interpretation Reference Range Facility [facility] 12-18-2024 Reminders Reminders From: Marta Kent To: [facility] - Clinical; Sent: 12/16/2024 09:30:36 EDT Show up: 12/16/2024 09:31:00 EDT Subject: Ambulatory Reminder Due Date/Time: 12/17/2024 09:30:00 EDT pap was negative Results: Date Result Name Value Ref Range 12/08/2024 8:45 HPV Aptima Negative (Negative - ) 12/08/2024 8:45 PAP Note LVM for pt to return call please advise pt of message below pt notified Normal [facility] PAP [id number] 12-12-2024 Cytology report Cyto stain Doc (Cvx/Vag) Note Invalid Interpretation Code [facility] Comment on above: Result Comment: TEST S RESULT FLAG UNITS REF RANGE LAB Clinician Provided Cytology Information Source.............Endocervix No. of containers..01 ThinPrep Vial DIAGNOSIS: 01 NEGATIVE FOR INTRAEPITHELIAL LESION OR MALIGNANCY. Specimen adequacy: 01 Satisfactory for evaluation. No endocervical component is identified. Performed by: 01 Jm Garcia, Supervisory Director Veterinary (ASCP) . 01 Note: Note 02 The Pap smear is a screening test designed to aid in the detection of premalignant and malignant conditions of the uterine cervix. It is not a diagnostic procedure and should not be used as the sole means of detecting cervical cancer. Both false-positive and false-negative reports do occur. Test Methodology: Note 02 This liquid based ThinPrep(R) pap test was screened with the use of an image guided system. HPV Genotype Reflex Note 01 Criteria not met, HPV Genotype not performed. FLAG LEGEND: L-Low Normal,H-High Normal,LL-Alert Low,HH-Alert High <-Panic Low,>-Panic High,A-Abnormal,AA-Critical Abnormal Performed at: [address] [facility] [address] [address] Shana Lebron MD, [address] [facility] [address] [address] Nessa Graham MD, Performed By: #### 1 [id number] #### [facility] [address] [place] [id number] HPV 16+18+31+33+35+39+ 45+51+52+56+58+59+ 66+68 DNA Probe+sig amp Ql (Cvx) Negative Invalid Interpretation Code Negative [facility] Comment on above: Result Comment: This nucleic acid amplification test detects fourteen high-risk HPV types (16,18,31,33,35,39,45,51,52,56,58,59,66,68) without differentiation. Performed at: [facility] [place] [address], [place] [id number] MD Bernardino Saldana Performed at: [facility] [place] [address] [place] [id number] MD Gladys Szymanski Performed By: #### 1 [id number] #### [facility] [address] [place] [address] Ambulatory Visit Summaryon 0 12-08-2024 Ambulatory Visit Summary Ambulatory Visit Summary ELENA METZGER :1980 Visit Date:12/08/2024 Ambulatory Visit Instructions Your Diagnosis Well woman exam Cervical cancer screening Breast cancer screening by mammogram BMI 27.0-27.9,adult Non-smoker Tests Performed MA Mamm Screen w/CAD if [...] (Multi Vitamin+) ondansetron (Zofran 4 mg Tab) pantoprazole (Pantoprazole [address] Tab) tirzepatide (Mounjaro 12.5 mg/0.5 mL subcutaneous solution) Procedures Performed Caesarean section, Colonoscopy, Tonsillectomy, Tubal ligation. Discharge Vitals Heart Rate (Peripheral) 66 Respiratory Rate 18 Blood Pressure 120/74 Height 163.0 cm Height 64 in Weight 72.15 kg Weight 159.063 lb BMI 27.16 What to do next Scheduled Follow-Up Appointments 2025 9:00 AM EDT With: Marta Kent Where: [facility] [address] [place] [address]- Medications What How Much When Why Instructions Unchanged amphetamine-dextroamp hetamine (Adderall) 30 Milligram By Mouth Every day Unchanged aspirin (Aspirin Low Dose 81 mg oral enteric coated tablet) 1 Tablets By Mouth Every day Unchanged cholecalciferol (Vitamin D3 10,000 intl units oral capsule) 1 Capsules By Mouth Every day Unchanged guanfacine (guanfacine 3 mg oral tablet, extended release) 1 Tablets By Mouth Every day Unchanged levonorgestrel (Mirena 52 mg intrauteral device) 1 Each Intrauteral Once Duration: 1 Doses Unchanged multivitamin (Multi Vitamin+) Unchanged ondansetron (Zofran 4 mg Tab) 1 Tablets By Mouth Every 8 hours as needed for Nausea/Vomiting Well woman exam Breast cancer screening by mammogram Cervical cancer screening BMI 28.0-28.9,adult Unchanged pantoprazole (Pantoprazole [address] Tab) 1 Tablets Unchanged tirzepatide (Mounjaro 12.5 mg/ 0.5 mL subcutaneous solution) 12.5 Milligram Allergies No Known Allergies Problems Ongoing - Any problem that you are currently receiving treatment for. Adult BMI 29.0-29.9 kg/sq m Asymptomatic microscopic hematuria BMI 33.0-33.9,adult Breast cancer screening by mammogram Cervical cancer screening Encounter for weight management Non-smoker Well woman exam Patient Survey You may receive a survey via text or e-mail asking about your office visit. Please share your experience with us by completing your survey. We appreciate your feedback and thank you for choosing us for your care. [facility] Ambulatory Visit Summary Ambulatory Visit Summary ELENA METZGER :1980 Visit Date:12/08/2024 Ambulatory Visit Instructions Your Diagnosis Well woman exam Cervical cancer screening Breast cancer screening by mammogram BMI 27.0-27.9,adult Non-smoker Your Care Team Attending Physician - Marta Kent Primary Care Physician - Marta Kent This Is Your Medications List amphetamine-dextroamp hetamine (Adderall) aspirin (Aspirin Low Dose 81 mg oral enteric coated tablet) cholecalciferol (Vitamin D3 10,000 intl units oral capsule) guanfacine (guanfacine 3 mg oral tablet, extended release) levonorgestrel (Mirena 52 mg intrauteral device) multivitamin (Multi Vitamin+) ondansetron (Zofran 4 mg Tab) pantoprazole (Pantoprazole [address] Tab) tirzepatide (Mounjaro 12.5 mg/0.5 mL subcutaneous solution) Procedures Performed Caesarean section, Colonoscopy, Tonsillectomy, Tubal ligation. Discharge Vitals Heart Rate (Peripheral) 66 Respiratory Rate 18 Blood Pressure 120/74 Height 163.0 cm Height 64 in Weight 72.15 kg Weight 159.063 lb BMI 27.16 Medications What How Much When Why Instructions Unchanged amphetamine-dextroamp hetamine (Adderall) 30 Milligram By Mouth Every day Unchanged aspirin (Aspirin Low Dose 81 mg oral enteric coated tablet) 1 Tablets By Mouth Every day Unchanged cholecalciferol (Vitamin D3 10,000 intl units oral capsule) 1 Capsules By Mouth Every day Unchanged guanfacine (guanfacine 3 mg oral tablet, extended release) 1 Tablets By Mouth Every day Unchanged levonorgestrel (Mirena 52 mg intrauteral device) 1 Each Intrauteral Once Duration: 1 Doses Unchanged multivitamin (Multi Vitamin+) Unchanged ondansetron (Zofran 4 mg Tab) 1 Tablets By Mouth Every 8 hours as needed for Nausea/Vomiting Well woman exam Breast cancer screening by mammogram Cervical cancer screening BMI 28.0-28.9,adult Unchanged pantoprazole (Pantoprazole [address] Tab) 1 Tablets Unchanged tirzepatide (Mounjaro 12.5 mg/ 0.5 mL subcutaneous solution) 12.5 Milligram Allergies No Known Allergies Problems Ongoing - Any problem that you are currently receiving treatment for. Adult BMI 29.0-29.9 kg/sq m Asymptomatic microscopic hematuria BMI 33.0-33.9,adult Breast cancer screening by mammogram Cervical cancer screening Encounter for weight management Non-smoker Well woman exam Patient Survey You may receive a survey via text or e-mail asking about your office visit. Please share your experience with us by completing your survey. We appreciate your feedback and thank you for choosing us for your care. [facility] Family Medicine Office/Clini c Noteon 12-08-2024 Family Medicine Office/Clinic Note Family Medicine Office/Clinic Note HPI Staff Elena is a 44 year old female presenting for well woman Woman check up: Last pap: 1 year Last Kyle: 04/08/24 Results of lap pap: normal Where was it done: hx: # of pregnancies..3. abortions... live births.3.. living children... menstrual cycle (normal,heavy,ect): n/a due to IUD History of STD: no Do you want tested for STD today: no Vaginal discharge, odor, itching: no Self breast exam at home? yes Hx of breast, cervical or uterine cancer in the family: no History of Present Illness pt presents today for well woman visit Review of Systems PHQ Score Initial Depression Screen Score: 0 SCORE Physical Exam Vitals & Measurements HR: 66(Peripheral) RR: 18 BP: 120/74 SpO2: 98% HT: 64 in HT: 163.0 cm WT: 159.063 lb WT: 72.15 kg BMI: 27.16 General: Well developed, well nourished, in no [...] masses. Pap obtained Neurologic: Grossly normal Skin: [place], moist, no tenting Lymph Nodes: No cervical adenopathy, nodes normal Mental Status: Alert and oriented x3. Normal mood and affect Assessment/Plan 1. Well woman exam (Z01.419: Encounter for gynecological examination (general) (routine) without abnormal findings) pt presents today for well woman visit. BSE discussed. pap obtained. mamm ordered. all questions answered. RTC as needed Ordered: Est Preventative 40 to 64 years [address] MA Mamm Screen w/CAD if perf and 3D Selvin PAP w/ HPV and Genotype rflx 2. Cervical cancer screening (Z12.4: Encounter for screening for malignant neoplasm of cervix) pap obtained. Ordered: Est Preventative 40 to 64 years [address] MA Mamm Screen w/CAD if perf and 3D Selvin PAP w/ HPV and Genotype rflx 3. Breast cancer screening by mammogram (Z12.31: Encounter for screening mammogram for malignant neoplasm of breast) mammogram order provided. due in march Ordered: Est Preventative 40 to 64 years [address] MA Mamm Screen w/CAD if perf and 3D Selvin PAP [id number] w/ HPV and Genotype rflx 4. BMI 27.0-27.9,adult (Z68.27: Body mass index [BMI] 27.0-27.9, adult) BMI education given Ordered: Est Preventative 40 to 64 years [address] MA Mamm Screen w/CAD if perf and 3D Selvin PAP [id number] w/ HPV and Genotype rflx 5. Non-smoker (Z78.9: Other specified health status) continue not smoking Ordered: Est Preventative 40 to 64 years [address] MA Mamm Screen w/CAD if perf and 3D Selvin PAP 188930 w/ HPV and Genotype rflx Follow-up No qualifying data available Problem List/Past [...] Mounjaro 12.5 mg/0.5 mL subcutaneous solution, 12.5 mg Multi Vitamin+ Pantoprazole [address] Tab, 40 mg= 1 tab(s) Vitamin D3 10,000 intl units oral capsule, 250 mcg= 1 cap(s), Oral, Daily Zofran 4 mg Tab, 4 mg= 1 tab(s), Oral, q8hr, PRN, 1 refills Allergies No Known Allergies Social History Alcohol Current, 1-2 times per month, 08/11/2019 Tobacco Never (less than 100 in lifetime) Tobacco Use:. Never Smokeless Tobacco Use:. Household tobacco concerns: No., 12/07/2023 Family History Family history is negative Immunizations Vaccine Date Status SARS-CoV-2 (COVID-19) mRNA-1273 vaccine 09/30/2020 Recorded SARS-CoV-2 (COVID-19) mRNA-1273 vaccine 09/02/2020 Recorded influenza, unspecified formulation 06/04/2020 Recorded influenza, unspecified formulation 06/05/2017 Recorded Normal [facility] Comment on above: Result Comment: Elec tronically Signed By: Marta Kent\.br\Date and Time Signed: 12/08/24 09:08 EDT PAP [id number] 12-08-2024 Gynecological Body Site ENDOCERVIX Normal [facility] Comment on above: Performed By: #### 1 [id number] #### [facility] [address] [place] [address] MG MAMM SCREEN 3D SELVIN CADon 12-04-2022 MG MAMM SCREEN 3D SELVIN CAD Patient: ELENA METZGER Exam Date: 12/04/2022 : 1980 Gender:F Ordering : MARTA DORADO . Admission #: [id number] Family : Order #: [id number] CLICK HERE TO VIEW EXAM RADIOLOGY REPORT [...] Treatments None Family Cancers None LOCATION: The [facility] BREAST COMPOSITION: Heterogeneously dense,which may obscure small [...] M.D. on 12/04/2022 at 08:46 Normal The [facility] Covid-19 PCR (CVDTBH)on 03-28 SARS-CoV-2 (COVID-19) RNA AISHWARYA+probe Ql (Unsp spec) Detected Critically abnormal NOT DETECTED [facility] Comment on above: Result Comment: This test is not yet approved or cleared by the [place] FDA. When there are no FDA-approved or cleared tests available, and other criteria are met, FDA can make tests available under an emergency access mechanism called an Emergency Use Authorization (EUA). The EUA for this test is supported by the [place] of Health and Human Service's declaration that [...] longer be used). Performed By: #### C VDTB #### [facility] [address] [place] [address] Dr. Ashtyn Hawkins Covid-19 PCR (CVDTBH)on 03-27 SARS-CoV-2 (COVID-19) RNA AISHWAYRA+probe Ql (Unsp spec) Detected Critically abnormal NOT DETECTED [facility] Comment on above: Result Comment: This test is not yet approved or cleared by the [place] FDA. When there are no FDA-approved or cleared tests available, and other criteria are met, FDA can make tests available under an emergency access mechanism called an Emergency Use Authorization (EUA). The EUA for this test is supported by the [place] of Health and Human Service's declaration that [...] used). Performed By: #### C VDTBH #### [facility] [address] [place] [address] Dr. Ashtyn Hawkins Encounters Encounter Date Encounter Type Care Provider Facility Start: 12-10-2025 ambulatory A[address]LANE PILOT Marta L [address] Facil ity:[facility] [place] Start: 12-08-2024 End: 12-08-2024 Lab Drop off Marta L [facility] Start: 12-08-2024 End: 12-08-2024 ambulatory [address]ANE PILOT Marta L [address] Facility:[facility] Start: 03-10-2024 End: 03-10-2024 ambulatory AEROPLANE PILOT Marta L Ave Facility:[facility] [place] Start: 12-07-2023 End: 12-07-2023 Lab Drop off Marta L [facility] Start: 12-04-2022 End: 12-05-[address] Facility: Start: 11-09-2022 End: 11-09-2022 Lab Drop off Marta L [facility] Start: 08-17-[address] JOSE ALFREDO Alcaraz y:[facility]1 Start: 04-16-2022 End: 04-16-2022 ambulatory SHAYY LIU Facility:[facility] Start: 04-11-2022 End: 04-11-2022 ambulatory SHAYY LIU Facility:[facility] Start: 04-02-[address] ASHLEY HSU . Facili ty:[facility] Procedures Date Procedure Procedure Detail Performing Clinician section Marta Ave Colonoscopy Marta Ave Ligation of fallopian tube J lory Ave Tonsillectomy Marta [address] Immunizations Immunization Date Immunization Notes Care Provider Fa cilijessika 09-30-2020 SARS-CoV-2 (COVID-19 ) mRNA-[address] [facility] 09-02-2020 SARS-CoV-2 (COVID-19 ) mRNA-[address] [facility] 06-04-2020 influenza, unspecifi ed formulation Marta Ave [facility] 06-05-2017 influenza, unspecifi ed formulation Marta Ave [facility] Payers Date Payer Category Payer Unknown [id number] 1980 Unknown [id number] 2.16.84 [id number] 1980 Unknown [id number] 2.16.84 [id number] 1980 Unknown [id number] 2.16.84 [id number] 1980 Unknown [id number] 2.16.84 [id number] 1980 Unknown [id number] 2.16.84 [id number] 1980 Unknown [id number] 2.16.8 [id number] 1980 Unknown [id number] 2.16.8 [id number] 1980 Unknown [id number] 2.16.8 [id number] 1980 Unknown [id number] 2.16.8 [id number] 1961 Self-pay [id number] 1961 Unknown [id number] 1961 Unknown 84 Unknown [id number] Social History Date Type Detail Facility Start: 11-09-2022 End: 12-07-2023 Tobacco smoking status Never smoked tobacco (finding) [facility] Tobacco smoking status Never [facility] Sex Assigned At Female [facility] Sexual Orientation [facility] Start: 02-13-2017 Sex Female (finding) [facility] Evaluation + Plan note 11-09-2022 Note Date & Type Note Facility 11-09-2022 Evaluation + Plan note Diagnostic Tests PendingPAP [id number] w/ HPV and Genotype rflx 11/09/22 [facility] Evaluation + Plan note Note Date & Type Note Facility Evaluation + Plan note Future Appointments Appointment Date:03/10/2024 08:20:00 AM Scheduled Provider:Marta Kent Location:[facility] Appointment Type:FM Open Appointment Date:12/08/2024 08:20:00 AM Scheduled Provider:Marta Kent Location:[facility] Appointment Type: Open Diagnostic Tests PendingPAP [id number] w/ HPV and Genotype rflx 12/07/23 [facility] Evaluation + Plan note Note Date & Type Note Facility Evaluation + Plan note Future Appointments Appointment Date:12/10/2025 09:00:00 AM Scheduled Provider:Marta Kent Location:[facility] Appointment Type:FM Pap/Pelvic Diagnostic Tests PendingPAP [id number] w/ HPV and Genotype rflx 12/08/24 [facility] Hospital course Narrative Note Date & Type Note Facility Hospital course Narrative No data available for this section [facility] Hospital Discharge instructions Note Date & Type Note Facility Hospital Discharge instructions No data available for this section [facility] Progress note Note Date & Type Note Facility Progress note No data available for this section [facility] Summary Purpose Family History No Family History Records Found No data available for this section No data available for this section No Family History Records FoundNo Family History Records Found Advance Directives No Advanced Directives Records FoundNo Advanced Directives Records FoundNo Advanced Directives Records Found Additional Source Comments Patient Care team informatio n (unrecognized section and content) Personnel Name: Marta Kent Address: Address: [address] [place] [address] [place] [address]- Personnel Name: Marta eKnt Address: Address: [address] [place] [address]- Personnel Name: Marta Kent Address: [address] [place] [address]- Telecom: INFORMATION SOURCE (unrecogn ized section and content) DATE CREATED AUTHOR 12/12/2022 [facility] DATE CREATED AUTHOR AUTHOR'S ORGANIZ ATION 12/10/2024 [facility] DATE CREATED AUTHOR AUTHOR'S ORGANIZ ATION 12/19/2024 [facility] FOR RECORDS PERTAINING TO PATIENTS WHO ARE [...] BE BASED ON THE PRIMARY CLINICAL RECORDS. [facility]. provides no warranty or guarantee of the accuracy or completeness of information in this document.
== END 2025-06-15 07:33 | disposition home or self-care (01) ==
LOC: MAMMO 07:32
PROVIDERS: PCP Nurse Practitioner; Visit Provider Nurse Practitioner
DX: Z12.31 Encounter for screening mammogram for malignant neoplasm of breast (principal); Z78.9 Other specified health status; Z68.27 Body mass index [BMI] 27.0-27.9, adult
CPT/HCPCS: 77063; 77067